=== PATIENT | male | born 1970 | race Caucasian/White ===

== ENCOUNTER → 2018-09-13 | Day surgery (SDC) | payer OTHER ==
[~2018-09-13] MED LIST: FENTANYL CITRATE/PF 100MCG/2 ML INJ ONE; KETAMINE HCL INJ 50 MG/ML 10 ML VIAL ONE; MIDAZOLAM HCL 2 MG/2 ML VIAL ONE; PROPOFOL IV EMULSION 10 MG/ML 50 ML VIAL ONE
[2018-09-13 10:53] VITALS: BP 152/90
== END | disposition home or self-care (01) ==
LOC: OR 05:46
PROVIDERS: ATTEND Internal Medicine Gastroenterology
DX: K92.1 Melena (principal); D12.2 Benign neoplasm of ascending colon; D12.3 Benign neoplasm of transverse colon; D12.4 Benign neoplasm of descending colon; K59.00 Constipation, unspecified; K57.30 Diverticulosis of large intestine without perforation or abscess without bleeding; K64.8 Other hemorrhoids; E55.9 Vitamin D deficiency, unspecified; Z01.810 Encounter for preprocedural cardiovascular examination; Z68.31 Body mass index [BMI] 31.0-31.9, adult
CPT/HCPCS: 45384; 45385; 93005; J2250; 45378